=== PATIENT | male | born 1945 | race Two or more races ===

== ENCOUNTER 2021-05-01 00:19 | Emergency (ER) | payer OTHER ==
[~2021-05-01] VITALS: Ht 188 cm; Wt 81.6 kg
[2021-05-01 01:48] LABS: Basophils # (auto) 0 10 ^3/uL (0-0.2); Basophils % (auto) 0.2 % (0.0-2.0); Eosinophils # (auto) 0 10 ^3/uL (0-0.8); Eosinophils % (auto) 0.1 % (0.0-7.0); Hemoglobin 11.5 g/dL (13.5-17.5); Lymphocytes # (auto) 0.4 10 ^3/uL (0.4-5.4); Lymphocytes % (auto) 4.6 % (10.0-50.0); Mean Corpuscular Hemoglobin 29.5 pg (28.0-32.0); Mean Corpuscular Hgb Conc. 31.9 g/dL (32.0-36.0); Mean Corpuscular Volume 92.7 fL (80.0-100.0); Monocytes # (auto) 0.5 10 ^3/uL (0-1.3); Monocytes % (auto) 5.7 % (0.0-12.0); Neutrophils % (auto) 89.4 % (37.0-80.0); Nucleated Red Blood Cells % 0.2 %; Red Blood Cells 3.89 10^6/uL (4.5-5.90); Red Cell Distribution Width 18.3 % (11.8-14.3); White Blood Cell 8.9 10^3/uL (4.4-10.8)
[2021-05-01 02:08] LABS: Albumin 2.2 g/dL (3.4-5.0); Potassium 4.5 mmol/L (3.5-5.1)
[2021-05-01 02:13] LABS: Bilirubin, Total 1.4 mg/dL (0.2-1.0); Total Protein 6.3 g/dL (6.4-8.2)
[2021-05-01] MEDS ORDERED: SODIUM CHLORIDE 0.9% 500 ML IVB ONE (08:00)
[2021-05-01] MEDS ORDERED: SODIUM CHLORIDE 0.9% 1,000 ML IV ONE (08:00)
[2021-05-01 12:19] LABS: Urine Bacteria MANY /hpf (None Seen); Urine Blood 2+ /uL (Negative); Urine Mucus FEW (None Seen); Urine WBC 760 /hpf (0 - 3); Urine WBC Clumps PRESENT /hpf (None Seen)
[2021-05-01] MEDS ORDERED: MORPHINE SULFATE INJECTION 2 MG/ML SYRG IV ONE (13:15)
[2021-05-01] MEDS ORDERED: ONDANSETRON HCL 4 MG/2 ML VIAL IV ONE (13:15)
[2021-05-01] MEDS ORDERED: cefTRIAXone 1GM/50ML D5W 50 ML IV ONE (13:30)
[2021-05-01 17:14] LABS: Lactic Acid w/Reflex 2.6 mmol/L (0.4-2.0)
[2021-05-01] MEDS ORDERED: DEXTROSE 50% SYRINGE 50 ML IV ONE (17:21)
[2021-05-01] MEDS ORDERED: DEXTROSE (50%) 50ML SYRG IV ONE (17:30)
[2021-05-01] MEDS ORDERED: IOHEXOL 350 MG/ML 100ML IJ ONE (18:05)
[2021-05-01 20:26] VITALS: BP 135/87
== END 2021-05-01 21:55 | disposition short-term general hospital (02) ==
LOC: EDBD 00:19 → ER 00:19
DX: R41.82 Altered mental status, unspecified (principal); R53.1 Weakness; N39.0 Urinary tract infection, site not specified; C78.00 Secondary malignant neoplasm of unspecified lung; C79.51 Secondary malignant neoplasm of bone; R77.8 Other specified abnormalities of plasma proteins; R74.8 Abnormal levels of other serum enzymes; E43 Unspecified severe protein-calorie malnutrition; Z68.23 Body mass index [BMI] 23.0-23.9, adult; Z20.822 Contact with and (suspected) exposure to COVID-19
CPT/HCPCS: 36415; 70450; 71045; 71275; 80053; 81001; 82962; 83605; 83735; 84443; 84484; 85025; 85379; 87040; 87426; 93005; 96361; 96365; 96366; 96375; 99285; J0696; J2270; J2405; J7030; J7042; Q9967; 87077; 87186